=== PATIENT | female | born 1950 | race Caucasian/White ===

== ENCOUNTER → 2016-07-01 | Outpatient (CLI) | payer MEDICARE, BC ==
[~2016-07-01] MED LIST: 3N1 COMMODE MC; ASPI-781 PO; OXY5 PO; ULT50 PO; WALK1EAC23 MC
--- NOTE | 2016-07-01 09:32 | RADRPT ---
PROCEDURE: XR Right hip and pelvis. CLINICAL INDICATION: Right hip pain. Pelvic pain. Postop. TECHNIQUE: Three views. Frontal pelvis. Frontal and lateral right hip. COMPARISON: 12/13/2015. FINDINGS: There is no fracture or dislocation. The soft tissues are normal. There is a right hip total arthroplasty which appears satisfactory. There are mild degenerative changes of the left hip with small osteophytes noted. The left hip is o therwise unremarkable. There is no lytic or blastic lesion. There are degenerative changes of the lower lumbar spine. IMPRESSION: 1. Satisfactory postoperative appearance of the right hip. 2. Mild degenerative changes of the left hip. 3. Degenerative changes of the lower lumbar spine. RPTAT: QQ .Dorian Gaviria MD, MD Date Time Electronically viewed and signed by .Dorian Gaviria MD, on 07/01/2016 09:32 .R/
== END | disposition home or self-care (01) ==
LOC: HKI 08:57
PROVIDERS: ATTEND Orthopaedic Surgery
DX: Z47.1 Aftercare following joint replacement surgery (principal); Z96.641 Presence of right artificial hip joint
CPT/HCPCS: 73502; G0463